=== PATIENT | male | born 1990 | race African-American/Black ===

== ENCOUNTER 2018-08-04 01:05 | Emergency (ER) | payer OTHER ==
[~2018-08-04] VITALS: Ht 188 cm; Wt 131.5 kg
[~2018-08-04 01:05] MED LIST: NORCO 5-325 TA1 EACH PO
[2018-08-04 01:45] LABS: ABSOLUTE NEUTROPHILS 13.8 thou/uL (1.4-8.2); BASOPHILS 0.6 % (0.0-2.0); EOSINOPHILS 0.2 % (0.0-3.0); HEMATOCRIT 41.4 % (42.0-52.0); HEMOGLOBIN 13.7 gm/dL (14.0-18.0); LYMPHOCYTES 15.4 % (24.0-44.0); MCH 29.7 pg (26.0-34.0); MCHC 33.1 g/dL (28.0-37.0); MCV 89.9 fL (80.0-100.0); MONOCYTES 6.3 % (1.0-8.0); PLATELET COUNT 219 thou/uL (150-400); POLYS 77.5 % (36.0-66.0); WBC 17.7 thou/uL (4.0-11.0)
[2018-08-04 01:49] LABS: CALCIUM 9.1 mg/dL (8.5-10.1); CREATININE 1.1 mg/dL (0.7-1.3); POTASSIUM 3.4 mmol/L (3.5-5.1)
[2018-08-04 01:55] LABS: ALBUMIN 3.7 g/dL (3.4-5.0); TOTAL PROTEIN 8.1 g/dL (6.4-8.2)
[2018-08-04] MEDS ORDERED: PROAIR HFA8.5 GM INH (02:09)
[2018-08-04] MEDS ORDERED: LEVAQUIN 500 M500 M1 PO (02:09)
[2018-08-04] MEDS ORDERED: TESSALON PERLE100 MG PO (02:09)
[2018-08-04 03:29] VITALS: BP 122/74
--- NOTE | 2018-08-04 16:29 | EKG ---
[place] [address] [facility] [place] [address] ELECTROCARDIOGRAM REPORT Name: OLIVIA CAI Room [facility]: [id number] Admission: 08/04/18 Attend Phys: Discharge: 08/04/18 Date of : 89 Report #: [id number] THIS REPORT FOR: //name// [facility] ED Test Date: 2018-08-04 Test Time: 01:24:57 Pat Name: OLIVIA CAI Department: Room: Gender: Wood Room Supervisor: ESTELLE : 1990 Requested By: Leonidas Craven Order Number: [id number] MD: Castro Liu Measurements Intervals [place] Rate: 74 P: 33 TN: 153 QRS: 4 QRSD: 97 T: 0 QT: 373 QTc: 414 Interpretive Statements Sinus rhythm Probable left ventricular hypertrophy Borderline ST elevation, lateral leads No previous ECG available for comparison Electronically Signed On 08-04-2018 16:29:06 E [employer]GER by Castro Liu [email or web address] <ELECTRONICALLY SIGNED> By: Castro Liu MD 08/04/18 1629 [id number] MD VERNON Padilla
== END 2018-08-04 03:30 | disposition home or self-care (01) ==
LOC: ER 01:05
PROVIDERS: Emergency Medicine
DX: J18.8 Other pneumonia, unspecified organism (principal); F17.210 Nicotine dependence, cigarettes, uncomplicated

== ENCOUNTER 2019-06-03 09:02 | Emergency (ER) | payer OTHER ==
[~2019-06-03] VITALS: Ht 188 cm; Wt 139.7 kg
[~2019-06-03 09:02] MED LIST changes: +LEVAQUIN 500 M500 M1 PO; +PROAIR HFA8.5 GM INH; +TESSALON PERLE100 MG PO
[2019-06-03] MEDS ORDERED: MEDROLDOSEPACK PO (10:07)
[2019-06-03] MEDS ORDERED: PROAIR HFA8.5 GM INH (10:07)
[2019-06-03 10:32] VITALS: BP 145/80
== END 2019-06-03 10:32 | disposition home or self-care (01) ==
LOC: ER 09:02
DX: J40 Bronchitis, not specified as acute or chronic (principal); F17.210 Nicotine dependence, cigarettes, uncomplicated